=== PATIENT | female | born 1990 | race Caucasian/White ===

== ENCOUNTER 2018-03-06 21:40 | Emergency (ER) | payer OTHER ==
[~2018-03-06] VITALS: Ht 167.6 cm; Wt 87.1 kg
[~2018-03-06 21:40] MED LIST: AMBIEN 5 MG TABL5 M1 PO; AMOXICILLIN 50500 M1 PO; AMOXICILLIN 50500 MG PO; AUGMENTIN 875875 MG PO; BACTRIM DS TAB1 EACH PO; BIRTH CONTROL; COMPAZINE10 M1 PO; COMPAZINE10 MG PO; FLEXERIL PO; HYDROCODONE-APA1 TA1 PO; K-DUR 20 MEQ T20 MEQ PO; NORCO 5-325 TA1 EACH PO; ONDANSETRON HCL4 M2 PO; PHENERGAN 25 MG25 M1 PO; PHENERGAN 25 MG25 MG PO; PHENERGAN25 MG RE; PRENATAL PO; PROMETH-CODEIN 65 ML PO; PROMETHAZINE HC50 M1; REGLAN 10 MG TA10 M1 PO; RELAFEN500 MG PO; TRAMADOL 50 MG50 MG PO; ULTRAM ER100 MG PO; WELLBUTRIN 100100 M1 PO; XANAX 0.25 MG0.25 MG; XANAX 0.25 MG0.25 MG PO; ZOFRAN; ZOLOFT100 MG PO; ZOLOFT25 MG PO; [UNRECOGNIZED DRUG - REMARK]
[2018-03-06] MEDS ORDERED: ACETAMINOPHEN-1 EAC1 PO (22:49)
[2018-03-06] MEDS ORDERED: AMOXICILLIN 50500 MG PO (22:49)
[2018-03-06] MEDS ORDERED: NORCO 5-325 TA1 EACH PO (23:01)
[2018-03-06 23:07] VITALS: BP 151/93
== END 2018-03-06 23:07 | disposition home or self-care (01) ==
LOC: M.ERS 21:40
DX: J01.00 Acute maxillary sinusitis, unspecified (principal)

== ENCOUNTER 2018-04-05 22:34 | Emergency (ER) | payer OTHER ==
[~2018-04-05] VITALS: Ht 167.6 cm; Wt 86.2 kg
[~2018-04-05 22:34] MED LIST changes: +ACETAMINOPHEN-1 EAC1 PO
[2018-04-05 23:10] LABS: HEMATOCRIT 40.4 % (37.0-47.0); HEMOGLOBIN 13.2 gm/dL (12.0-15.0); MCH 27.7 pg (26.0-34.0); MCHC 32.6 g/dL (28.0-37.0); MCV 84.8 fL (80.0-100.0); MPV 9.7 fl. (7.2-11.1); NUCLEATED RBCS 0 /100WBC; PLATELET COUNT* 221 thou/uL (150-400); RBC 4.76 mil/uL (4.20-5.00); RDW-CV 13.9 % (10.5-14.5); WBC 14.2 thou/uL (4.0-11.0)
[2018-04-05 23:31] LABS: ANION GAP 12 mmol/L (7-16); BUN 20 mg/dL (7-18); CALCIUM 9.4 mg/dL (8.5-10.1); CHLORIDE 102 mmol/L (98-107); CO2 24 mmol/L (21-32); CREATININE 0.9 mg/dL (0.6-1.3); GLUCOSE 136 mg/dL (70-99); POTASSIUM 3.5 mmol/L (3.5-5.1); SODIUM 138 mmol/L (136-145)
[2018-04-05 23:39] LABS: ALBUMIN 4.3 g/dL (3.4-5.0); ALKALINE PHOSPHATASE 53 U/L (46-116); LIPASE 92 U/L (73-393); SGOT 18 U/L (15-37); SGPT 24 U/L (30-65); TOTAL BILIRUBIN 1.1 mg/dL (<0.1-1.0); TOTAL PROTEIN 8.2 g/dL (6.4-8.2); TROPONIN-I LEVEL <0.06 ng/mL (<0.06)
[2018-04-06 00:33] LABS: AMP/METHAMP Negative (Negative); BARBITURATES Negative (Negative); BENZODIAZEPINES Negative (Negative); COCAINE Negative (Negative); METHADONE Negative (Negative); OPIATES POSITIVE (Negative); PCP Negative (Negative); THC POSITIVE (Negative)
[2018-04-06 00:35] LABS: ABSOLUTE LYMPHOCYTES 1.3 thou/uL (0.8-5.3); ABSOLUTE MONOCYTES 0.3 thou/uL (0.0-1.2); ABSOLUTE NEUTROPHILS 12.6 thou/uL (1.6-8.1)
[2018-04-06 00:36] LABS: CLUMPED PLTS OCCASIONAL; PLATELET ESTIMATE ADEQUATE
[2018-04-06 00:54] LABS: URINE BILIRUBIN NEGATIVE (Negative); URINE BLOOD NEGATIVE (Negative); URINE CLARITY CLEAR; URINE COLOR YELLOW; URINE GLUCOSE-RANDOM NEGATIVE (Negative); URINE LEUKOCYTES-REFLEX NEGATIVE (Negative); URINE NITRITE-REFLEX NEGATIVE (Negative); URINE PROTEIN 1+ (Negative); URINE SPECIFIC GRAVITY 1.025 (1.005-1.030); URINE UROBILINOGEN 0.2 E.U./dl (0.2-1.0)
[2018-04-06 00:55] LABS: URINE KETONES 3+ (Negative)
[2018-04-06 01:00] LABS: URINE REDUCING SUBSTANCE NEGATIVE (Negative)
[2018-04-06] MEDS ORDERED: CIPRO500 M1 PO (02:12)
[2018-04-06] MEDS ORDERED: ONDANSETRON HCL4 M2 PO (02:12)
[2018-04-06] MEDS ORDERED: FLAGYL500 MG PO (02:12)
[2018-04-06] MEDS ORDERED: NORCO 5-325 TA1 EACH PO (02:12)
[2018-04-06 03:01] VITALS: BP 113/53
== END 2018-04-06 03:04 | disposition home or self-care (01) ==
LOC: M.ERS 22:34
PROVIDERS: Emergency Medicine Emergency Medical Services
DX: K52.9 Noninfective gastroenteritis and colitis, unspecified (principal); Z88.5 Allergy status to narcotic agent; Z79.899 Other long term (current) drug therapy

== ENCOUNTER 2018-06-27 13:01 | Emergency (ER) | payer OTHER ==
[~2018-06-27] VITALS: Ht 167.6 cm; Wt 81.7 kg
[~2018-06-27 13:01] MED LIST changes: +CIPRO500 M1 PO; +FLAGYL500 MG PO
[2018-06-27] MEDS ORDERED: LIDOCAINE VISC100 ML SWISH&SPIT (13:25)
[2018-06-27] MEDS ORDERED: AMOXICILLIN 50500 MG PO (13:25)
[2018-06-27] MEDS ORDERED: TORADOL 10 MG T10 MG PO (13:25)
[2018-06-27] MEDS ORDERED: NORCO 5-325 TA1 EACH PO (13:25)
[2018-06-27] MEDS ORDERED: PHENERGAN 25 MG25 M1 PO (13:25)
[2018-06-27 14:08] VITALS: BP 125/77
== END 2018-06-27 14:10 | disposition home or self-care (01) ==
LOC: M.ERS 13:01
DX: K08.89 Other specified disorders of teeth and supporting structures (principal); Z88.5 Allergy status to narcotic agent

== ENCOUNTER 2018-09-07 21:08 | Emergency (ER) | payer OTHER ==
[~2018-09-07] VITALS: Ht 167.6 cm; Wt 81.7 kg
[~2018-09-07 21:08] MED LIST changes: +LIDOCAINE VISC100 ML SWISH&SPIT; +TORADOL 10 MG T10 MG PO
[2018-09-07 22:19] LABS: ABSOLUTE BASOPHILS 0.1 thou/uL (0.0-0.2); ABSOLUTE EOSINOPHILS 0.2 thou/uL (0.0-0.7); ABSOLUTE LYMPHOCYTES 2.9 thou/uL (0.8-5.3); ABSOLUTE MONOCYTES 0.7 thou/uL (0.0-1.2); ABSOLUTE NEUTROPHILS 5.2 thou/uL (1.6-8.1); BASOPHILS 0.8 %; HEMATOCRIT 39.3 % (37.0-47.0); HEMOGLOBIN 13.1 gm/dL (12.0-15.0); LYMPHOCYTES 32.4 %; MCH 28.8 pg (26.0-34.0); MCHC 33.4 g/dL (28.0-37.0); MCV 86.3 fL (80.0-100.0); MONOCYTES 7.6 %; MPV 9.6 fl. (7.2-11.1); NUCLEATED RBCS 0 /100WBC; PLATELET COUNT* 267 thou/uL (150-400); POLYS 57.2 %; RBC 4.55 mil/uL (4.20-5.00); RDW-CV 13.9 % (10.5-14.5); WBC 9.1 thou/uL (4.0-11.0)
[2018-09-07 22:26] LABS: URINE BILIRUBIN NEGATIVE (Negative); URINE BLOOD NEGATIVE (Negative); URINE CLARITY CLEAR; URINE COLOR STRAW; URINE GLUCOSE-RANDOM NEGATIVE (Negative); URINE KETONES NEGATIVE (Negative); URINE LEUKOCYTES NEGATIVE (Negative); URINE NITRITE NEGATIVE (Negative); URINE PROTEIN NEGATIVE (Negative); URINE UROBILINOGEN 0.2 E.U./dl (0.2-1.0)
[2018-09-07 22:32] LABS: CALCIUM 9.3 mg/dL (8.5-10.1); CREATININE 0.7 mg/dL (0.6-1.3); POTASSIUM 3.5 mmol/L (3.5-5.1)
[2018-09-07 22:37] LABS: ALBUMIN 3.9 g/dL (3.4-5.0); TOTAL BILIRUBIN 0.5 mg/dL (<0.1-1.0); TOTAL PROTEIN 7.4 g/dL (6.4-8.2)
[2018-09-07] MEDS ORDERED: NAPROSYN500 MG PO (23:12)
[2018-09-07] MEDS ORDERED: TRAMADOL 50 MG50 MG PO (23:30)
[2018-09-07 23:55] VITALS: BP 116/64
== END 2018-09-07 23:55 | disposition home or self-care (01) ==
LOC: M.ERS 21:08
PROVIDERS: Physician Assistant
DX: N83.202 Unspecified ovarian cyst, left side (principal); F41.9 Anxiety disorder, unspecified; Z98.890 Other specified postprocedural states; Z88.5 Allergy status to narcotic agent